=== PATIENT | male | born 1980 ===

== ENCOUNTER 2019-03-30 14:58 | Emergency (ER) | payer SELFPAY ==
[~2019-03-30] VITALS: Ht 170.2 cm; Wt 100.0 kg
[2019-03-30 15:01] VITALS: BP 161/80
[2019-03-30] MEDS ORDERED: pantoprazole 40mg Tablet.DR PO ONE (17:15)
[2019-03-30] MEDS ORDERED: mag hydrox/Alum hydrox/simeth 30ml oral suspension PO ONE (17:15)
[2019-03-30] MEDS ORDERED: LIDOcaine Viscous 15ml cup MM ONE (17:15)
[2019-03-30] MEDS ORDERED: PANT40TA4 PO (17:25)
== END 2019-03-30 17:40 | disposition home or self-care (01) ==
LOC: ER 14:59
DX: K21.9 Gastro-esophageal reflux disease without esophagitis (principal); Z79.899 Other long term (current) drug therapy
CPT/HCPCS: 93005; 99284